=== PATIENT | male | born 1995 | race Hispanic/Latino ===

== ENCOUNTER 2021-01-19 14:44 | Emergency (ER) | payer OTHER ==
[2021-01-19] MEDS ORDERED: BUPIVACAINE 0.5% PF 10 ML VIAL ONE (15:17)
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
[2021-01-19 17:17] VITALS: TEMP 98.8; O2SAT 100
[2021-01-19 17:23] VITALS: BP 122/81
== END 2021-01-19 17:03 | disposition home or self-care (01) ==
LOC: ER 14:44
PROC: 0CQ0XZZ Repair Upper Lip, External Approach (ICD-10-PCS; principal; 2021-01-19)
DX: S01.511A Laceration without foreign body of lip, initial encounter (principal); W50.0XXA Accidental hit or strike by another person, initial encounter
CPT/HCPCS: 99281